=== PATIENT | female | born 1955 | race Caucasian/White ===

== ENCOUNTER → 2017-01-18 | Outpatient (CLI) | payer OTHER ==
[~2017-01-18] MED LIST: ASPIRIN PO; CLEOCIN PO; COATED ASPIRIN325 M1 PO; CRESTOR PO; LEVOTHROID75 MCG PO; LEVOTHYROXINE112 MCG PO; LEXAPRO PO; LISINOPRIL PO; LISINOPRIL10 MG PO; MELOXICAM15 MG PO; METFORMIN HCL500 M1 PO; MOBIC PO; PREMARIN PO; PRILOSEC PO; SYNTHROID PO; [UNRECOGNIZED DRUG - REMARK]
--- NOTE | ~2017-01-18 | US24 ---
[facility] A Service of [facility] RADIOLOGY TEXT RESULTS PATIENT: EVITA HOUSE LOCATION: [facility] : 55 UNIT #: [id number] AGE: [address]: Hollie Echosl MD SEX: F ORDER DR: [id number] [facility] [address] [place], [place] [address] [id number] O MR#: [id number] Acc #: [id number] NAME: EVITA HOUSE. : 1955 SEX: F STUDY DATE/TIME: 01/18/2017 9:53 UNIT: [facility] ROOM: STUDY DESCRIPTION: US Breast Unilateral Attending Physician: Hollie Echols M.D. Referring Physician: Hollie Echols M.D. Ordering Physician: Hollie Echols M.D. Primary Care Physician: Hollie Echols M.D. MEDICAL IMAGING REPORT This report is preliminary unless electronic signature is present EXAM Targeted ultrasound of the left breast, 01/18/2017. FINDINGS Please see the diagnostic mammogram, same date, for findings. BIRADS: 4 Suspicious abnormality; biopsy should be considered. STAT * RESULT Dictated by... Jero Yoon M.D. THIS IS AN ELECTRONICALLY VERIFIED REPORT Jero Yoon M.D. at 01/18/2017 4:51 PM BRYAN/daniel TD: 01/18/2017 11:29 JOB #: [id number] MEDICAL IMAGING REPORT COPY
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
== END | disposition home or self-care (01) ==
LOC: CMAM 08:56
DX: N63 Unspecified lump in breast (principal); N60.12 Diffuse cystic mastopathy of left breast; N64.1 Fat necrosis of breast
CPT/HCPCS: 76641; G0204

== ENCOUNTER → 2017-01-25 | Outpatient (CLI) | payer OTHER ==
--- NOTE | ~2017-01-25 | US200 ---
[facility] A Service of [facility] RADIOLOGY TEXT RESULTS PATIENT: EVITA HOUSE LOCATION: [facility] : 55 UNIT #: [id number] AGE: [address]: Hollie Echols MD SEX: F ORDER DR: [id number] [facility] [address] [place] [address] [place], [place] [address] [id number] O MR#: [id number] Acc #: [id number] NAME: EVITA HOUSE. : 1955 SEX: F STUDY DATE/TIME: 01/25/2017 14:15 UNIT: [facility] ROOM: STUDY DESCRIPTION: US Breast Guided Bx 1st Lesion Attending Physician: Hollie Echols M.D. Ordering Physician: Hollie Echols M.D. Primary Care Physician: Hollie Echols M.D. MEDICAL IMAGING REPORT This report is preliminary unless electronic signature is present ADDENDUM EXAM Ultrasound guided core biopsy HISTORY FINDINGS Pathology reports have been returned placed online and they show atrophic appearing breast tissue with dense fibrosis and fatty necrosis. No malignancy is identified. Findings are concordant and routine screening is recommended. Dictated by... Seth Carranza M.D. THIS IS AN ELECTRONICALLY VERIFIED REPORT Seth Carranza M.D. at 02/17/2017 2:31 PM RUBIO/angelique TD: 02/16/2017 19:46 JOB #: [id number] MEDICAL IMAGING REPORT Page 1 of 1 COPY
== END | disposition home or self-care (01) ==
LOC: CWCC 13:40
DX: N60.32 Fibrosclerosis of left breast (principal); N64.1 Fat necrosis of breast
CPT/HCPCS: 88305; G0204

== ENCOUNTER 2017-02-22 19:42 | Emergency (ER) | payer OTHER ==
--- NOTE | ~2017-02-22 | CR72 ---
[facility] A Service of [facility] RADIOLOGY TEXT RESULTS PATIENT: EVITA HOUSE LOCATION: [facility] : 55 UNIT #: [id number] AGE: [address]: Aly Boyce DO SEX: F ORDER DR: [id number] [address] [address] [id number] E MR#: [id number] Acc #: [id number] NAME: EVITA HOUSE : 1955 SEX: F STUDY DATE/TIME: 02/22/2017 20:05 UNIT: [facility] ROOM: STUDY DESCRIPTION: CR Chest Single View Portable Attending Physician: Aly Boyce D.O. Ordering Physician: Aly Boyce D.O. Primary Care Physician: Hollie Echols M.D. MEDICAL IMAGING REPORT This report is preliminary unless electronic signature is present. EXAM Single view chest INDICATIONS Shortness of air and fever. 4-day duration. FINDINGS Single portable AP view of the chest compared to 12/18/2013. Heart and mediastinal contours are unchanged. Patient is status post median sternotomy and presumably CABG. Lungs are clear. No focal consolidation. IMPRESSION No acute cardiopulmonary findings. Dictated by... Jaylen Ellis M.D. THIS IS AN ELECTRONICALLY VERIFIED REPORT Jaylen Ellis M.D. at 02/23/2017 3:25 PM [facility]/bimal TD: 02/22/2017 23:38 JOB #: [id number] MEDICAL IMAGING REPORT Page 1 of 1
[2017-02-22 20:02] LABS: BASOPHIL% 0.5 % (0-2.5); EOSINOPHIL% 0.2 % (0.0-7.0); HEMATOCRIT 40.9 % (35.0-45.0); HEMOGLOBIN 13.8 gm/dL (12.0-16.0); LYMPHOCYTE# 0.5 X10e3 (1.0-3.5); LYMPHOCYTE% 7.6 % (17.0-45.0); MEAN CELL VOLUME 91.9 FL (83-96); MEAN CORPUSCULAR HEMOGLOBIN 30.9 PG (28-34); MEAN CORPUSCULAR HGB CONC 33.6 g/dL (30-36); MEAN PLATELET VOLUME 8.3 FL (6.5-11.5); MONOCYTE# 0.6 X10e3 (0-1.0); MONOCYTE% 8.2 % (3.0-12.0); NEUTROPHIL# 5.8 X10e3 (1.5-7.1); NEUTROPHIL% 83.5 % (40-75); PLATELET COUNT 154 X10e3 (140-420); RED BLOOD COUNT 4.45 X10e (3.90-5.30); RED CELL DISTRIBUTION WIDTH 13.7 % (11.0-15.5)
[2017-02-22 20:03] LABS: DIFF IND NO
[2017-02-22 20:07] LABS: INFLUENZA A POS (NEG); INFLUENZA B NEG (NEG)
[2017-02-22 20:18] LABS: POC - CKMB <1.0 ng/mL (0.0-7.9); POC - MYOGLOBIN 83.6 ng/mL (0.0-169.0); POC - TROPONIN <0.05 ng/mL (<=0.05)
[2017-02-22 20:19] LABS: ALBUMIN SERUM 3.9 g/dL (3.5-5.0); BILIRUBIN,TOTAL 0.8 mg/dL (0.2-2.0); CREATININE SERUM 0.8 mg/dL (0.6-1.4); GLOM FILT RATE Estimated 79.6 mL/min (>60); POTASSIUM 3.7 mmol/L (3.5-5.1); PROTEIN TOTAL SERUM 7.2 g/dL (6.0-8.3)
[2017-02-22 22:02] LABS: POC - CKMB <1.0 ng/mL (0.0-7.9); POC - MYOGLOBIN 64.3 ng/mL (0.0-169.0); POC - TROPONIN <0.05 ng/mL (<=0.05)
== END 2017-02-22 22:40 | disposition home or self-care (01) ==
LOC: SED 19:42
PROVIDERS: Emergency Medicine
DX: J10.1 Influenza due to other identified influenza virus with other respiratory manifestations (principal); R79.89 Other specified abnormal findings of blood chemistry; E11.9 Type 2 diabetes mellitus without complications; Z95.1 Presence of aortocoronary bypass graft; Z98.890 Other specified postprocedural states; Z88.8 Allergy status to other drugs, medicaments and biological substances
CPT/HCPCS: 36415; 71010; 80053; 82553; 82947; 83605; 83874; 83880; 84484; 85025; 87040; 87804; 99284